=== PATIENT | female | born 1935 | race Caucasian/White ===

== ENCOUNTER 2018-05-14 14:41 | Emergency (ER) | payer MEDICARE ==
[~2018-05-14] VITALS: Ht 157.5 cm; Wt 82.0 kg
[2018-05-14] MEDS ORDERED: MECLIZINE CHEWABLE 25 MG TAB PO ONE (15:00)
[2018-05-14 15:23] LABS: BASOPHILS # (AUTO) 0.02 x10^3/uL (0-0.1); BASOPHILS % (AUTO) 0 % (0-1); EOSINOPHILS # (AUTO) 0.51 x10^3/uL (0-0.4); EOSINOPHILS % (AUTO) 9 % (1-7); LYMPHOCYTES # (AUTO) 1.89 x10^3/uL (1-3.4); LYMPHOCYTES % (AUTO) 33 % (22-44); MD NO; MEAN CORPUSCULAR HEMOGLOBIN 28.7 pg (27.0-34.8); MEAN PLATELET VOLUME 10.7 fL (7.4-10.4); MONOCYTES # (AUTO) 0.38 x10^3/uL (0.2-0.8); MONOCYTES % (AUTO) 7 % (2-9); NEUTROPHILS # (AUTO) 2.95 x10^3/uL (1.8-6.8); NEUTROPHILS % (AUTO) 51 % (42-75); PLATELET COUNT 154 x10^3/uL (130-400); RED BLOOD COUNT 5.43 x10^6/uL (3.82-5.3); RED CELL DISTRIBUTION WIDTH 13.6 % (9.6-15.2)
[2018-05-14 15:32] LABS: CHLORIDE 112 mmol/L (98-107)
[2018-05-14 15:33] LABS: ALANINE AMINOTRANSFERASE 24 U/L (12-78); ALBUMIN 4.2 g/dL (3.4-5.0); ANION GAP 5 mmol/L (5-15); CALCIUM 9.1 mg/dL (8.5-10.1); CREATININE 1.37 mg/dL (0.55-1.02)
[2018-05-14 15:37] LABS: ALKALINE PHOSPHATASE 90 U/L (45-117); BILIRUBIN,TOTAL 0.4 mg/dL (0.2-1.0); TOTAL PROTEIN 7.6 g/dL (6.4-8.2); TROPONIN I < 0.015 ng/mL (0.000-0.045)
--- NOTE | 2018-05-14 16:55 | NUR ---
PT TO ROOM FROM LOBBY
[2018-05-14] MEDS ORDERED: MECLIZINE CHEWABLE 25 MG TAB ONE (16:58)
--- NOTE | 2018-05-14 17:04 | NUR ---
PT REPORTS BEING DIZZY FOR A COUPLE DAYS. PT IS ALERT, ORIENTED, WITH NAD. PT IS CONNECTED TO THE MONITOR. CALL LIGHT WITHIN REACH. AT BEDSIDE.
--- NOTE | 2018-05-14 17:44 | NUR ---
AMBULATED PT WITH STANDBY ASSIST. PT STATED THAT SHE IS STILL A LITTLE DIZZY.
--- NOTE | 2018-05-14 18:29 | NUR ---
Patient given discharge instructions and they have confirmed that they understand the instructions. Patient ambulatory with steady gait.
== END 2018-05-14 18:31 | disposition home or self-care (01) ==
LOC: MERGE 17:53 → ED 17:53
DX: H81.391 Other peripheral vertigo, right ear (principal); H81.11 Benign paroxysmal vertigo, right ear
CPT/HCPCS: 36415; 71045; 80053; 84484; 85025; 93005; 99284